=== PATIENT | male | born 1980 | race Two or more races ===

== ENCOUNTER 2024-07-27 18:43 | Emergency (ER) | payer OTHER ==
[~2024-07-27] VITALS: Ht 180.3 cm; Wt 108.9 kg
[2024-07-27] MEDS ORDERED: KETOROLAC TROMETHAMINE 60 MG VIAL IM ONE (19:30)
[2024-07-27] MEDS ORDERED: IBU800 MG PO (21:13)
== END 2024-07-27 21:47 | disposition home or self-care (01) ==
LOC: ER 18:46
DX: S93.401A Sprain of unspecified ligament of right ankle, initial encounter (principal); W18.39XA Other fall on same level, initial encounter; Y93.89 Activity, other specified; Y92.89 Other specified places as the place of occurrence of the external cause; Y99.9 Unspecified external cause status